=== PATIENT | female | born 2000 | race Caucasian/White ===

== ENCOUNTER 2022-02-25 16:37 | Emergency (ER) | payer SELFPAY ==
[2022-02-25 17:00] VITALS: BP 119/73; PULSE 113; RESP 20; TEMP 36.1; O2SAT 100
--- NOTE | 2022-02-25 19:40 | ED.FEMALEGU ---
HPI - Female Genitourinary General Chief complaint: Urogenital-Female Stated complaint: Urinary Problem Time Seen by Provider: 02/25/22 19:40 Source: patient, family, RN notes reviewed and old records reviewed Mode of arrival: ambulatory Limitations: no limitations History of Present Illness HPI Narrative: 21-year-old female accompanied by significant other presents to [facility] with 1 week duration of bilateral flank pain greatest on left with some burning with urination. Patient denies any fevers any suprapubic discomfort denies any visible blood in her urine. Patient verbalizes no vaginal discharge or any concern for STD exposure. Patient reports that she has not had any known fevers. Urine noted to be cloudy in appearance. Patient has been taking Tylenol for her discomfort. MD elicited complaint: UTI Onset (ago): week(s) (1) Location of symptoms: flank (bilateral with urinary burning) Severity scale (1-10): 7 Urinary symptoms: Dysuria and Flank Pain Related Data Allergies Allergy/AdvReac Type Severity Reaction Status Date / Time No Known Allergies Allergy Verified 02/25/22 18:19 Review of Systems Review of Systems: CONSTITUTIONAL: Denies fever, chills, or sweats. CARDIOVASCULAR: Denies chest pain, palpitations, or edema. RESPIRATORY: Denies cough or dyspnea. GASTROINTESTINAL: Denies abdominal pain, nausea, vomiting, or diarrhea. GENITOURINARY: Reports dysuria, frequency, urgency. Reports flank pain no visible hematuria. SKIN: Denies rash or itching. MUSCULOSKELETAL: Denies back pain or myalgia. Positive CVA tenderness NEUROLOGIC: Denies headache All systems reviewed & are unremarkable except as noted in HPI and below PMFSH Social History Social History (Updated 03/03/22 @ 09:07 by Kathi Gallegos NP) Smoking status: Current every day smoker Tobacco type: e-cigarettes/vaping Alcohol intake: unknown Substance use type: does not use Living arrangements: with family Gender identity (if verbalized by the patient): Female Comments At time of signature, agree with nursing past medical, surgical, social and family history. There is no relevant family history pertinent to the presenting complaint Exam Narrative: GENERAL: Well-appearing, well-nourished, and in no acute distress. HEAD: Normocephalic, atraumatic. NECK: Supple. CHEST: Clear to auscultation. No respiratory distress.SAO2 100% on room air HEART: Regular rate and rhythm. No murmur heard. Normal peripheral pulses. ABDOMEN: Soft, nontender, nondistended, normal active bowel sounds. Positive for CVA tenderness greater on left. EXTREMITIES: Normal range of motion. No edema. SKIN: Warm, dry, no rash. NEURO: No focal deficits. Alert and oriented x3. Course Course Emergency Course: Patient is aware of diagnosis, understands and agrees to treatment plan.? Anticipatory guidance given.? Patient agrees to follow-up as directed and is aware of reasons to seek care at the emergency department. Portions of this record may have been created with voice recognition software Level of Care: Express Care Visit Vital Signs Vital signs: Vital Signs Temperature 36.1 C L 02/25/22 17:00 Pulse Rate 113 H 02/25/22 17:00 Respiratory Rate 20 02/25/22 17:00 Blood Pressure 119/73 02/25/22 17:00 Pulse Oximetry 100 02/25/22 17:00 Oxygen Delivery Room Air 02/25/22 17:00 Temperature 36.1 C L 02/25/22 17:00 Pulse Rate 113 H 02/25/22 17:00 Respiratory Rate 20 02/25/22 17:00 Blood Pressure 119/73 02/25/22 17:00 Pulse Oximetry 100 02/25/22 17:00 Oxygen Delivery Room Air 02/25/22 17:00 MDM - Female Genitourinary MDM Narrative Medical decision making narrative: Exam findings and UA show no acute concerns or changes; patient is non-toxic appearing and is in no distress.? Patient is appropriate for outpatient treatment and follow-up. Differential Diagnosis Differential diagnosis: Likely urinary tract infection, cervicitis, vaginit
== END 2022-02-25 19:57 | disposition home or self-care (01) ==
PROVIDERS: Emergency Provider Registered Nurse
DX: N39.0 Urinary tract infection, site not specified (principal)
CPT/HCPCS: 81003; 87077; 87086; 87186; 99213; G0463

== ENCOUNTER 2023-05-02 15:18 | Emergency (ER) | payer SELFPAY ==
[2023-05-02 15:28] VITALS: BP 122/78; PULSE 100; RESP 18; TEMP 36.9; O2SAT 100
[2023-05-02 15:43] VITALS: BP 122/78; PULSE 100; RESP 18; TEMP 36.9; O2SAT 100
--- NOTE | 2023-05-02 16:18 | ED.GENADULT ---
HPI - General Adult General Chief complaint: Urogenital-Female Stated complaint: Poss UTI Source: patient Mode of arrival: ambulatory Limitations: no limitations History of Present Illness HPI narrative: Patient presents for evaluation of urinary symptoms. She has experienced dysuria for the past week. She has associated urinary frequency and urgency. She denies any fever, chills, abdominal pain, low back pain, vaginal bleeding or discharge. She is sexually active with 1 female partner. That partner is here being evaluated for similar symptoms. Related Data Allergies Allergy/AdvReac Type Severity Reaction Status Date / Time No Known Allergies Allergy Verified 05/02/23 15:25 Review of Systems Review of Systems: CONSTITUTIONAL: Denies fever, chills, or sweats. EYES: Denies visual changes, redness, or discharge. ENT: Denies rhinorrhea, congestion, sore throat, or otalgia. CARDIOVASCULAR: Denies chest pain, palpitations, or edema. RESPIRATORY: Denies cough or dyspnea. GASTROINTESTINAL: Denies abdominal pain, nausea, vomiting, or diarrhea. GENITOURINARY: Reports urinary frequency, urgency and dysuria. Denies vaginal bleeding or discharge. SKIN: Denies rash or itching. MUSCULOSKELETAL: Denies back pain, joint pain, or myalgia. NEUROLOGIC: Denies headache, numbness, dizziness, or weakness. PSYCHIATRIC: Denies anxiety or depression. [facility] Past Medical History Medical History No pertinent past medical history Surgical History Surgical History No pertinent past surgical history Family History Family History (Updated 05/02/23 @ 16:21 by Don Lyman, [facility], ) Mother Family history non-contributory Social History Social History Smoking status: Current every day smoker Tobacco type: e-cigarettes/vaping Alcohol intake: unknown Substance use type: does not use Additional living arrangements comments: Lives with girlfriend Gender identity (if verbalized by the patient): Female Exam Narrative: GENERAL: Well-appearing, well-nourished, and in no acute distress. HEAD: Normocephalic, atraumatic. EYES: PERRLA and EOMI. ENT: Nares clear, no rhinorrhea or epistaxis. Mucous membranes moist. Oropharynx without tonsillar hypertrophy exudate or other lesions. Bilateral TMs pearly penny nonbulging NECK: Supple. No adenopathy or masses. No carotid bruits or JVD CHEST: Clear to auscultation. No respiratory distress. No wheezes rales or rhonchi HEART: Regular rate and rhythm. No murmur heard. Normal peripheral pulses. ABDOMEN: Soft, nontender, nondistended, normal active bowel sounds. GENITAL: No external genital lesions. No adnexal tenderness. No cervical motion tenderness. There is a moderate amount of thick yellow/green drainage in vaginal vault EXTREMITIES: Normal range of motion. No edema. SKIN: Warm, dry, no rash. NEURO: No focal deficits. Alert and oriented x3. PSYCH: Normal mood and affect. Course Course Emergency Course: This is a 22-year-old female who presented for evaluation of urinary symptoms. Pelvic exam was performed and revealed moderate amount of thick yellow/green drainage in vaginal vault. We agreed to move forward with treatment for STIs hand BV. She was given Rocephin while here and will be discharged with doxycycline and Flagyl. Diflucan to be taken at the end of the course of antibiotics in the event that she develops vaginal candidiasis. advised to remain sexually abstinent until both she and her partner have fully completed course of antibiotics. Sterilize sex toys. Follow up with primary care provider and go to the ER for worsening symptoms. Pt in agreement with plan o f care. Level of Care: Express Care Visit Vital Signs Vital signs: Vital Signs Temperature 36.9 C 05/02/23 15
[2023-05-02] MEDS: cefTRIAXone 500 MG, LIDOCAINE HCL 1% LOCAL INJ 1 ML IM (17:00)
[2023-05-02 18:53] LABS: Trichomonas Vag PCR NOT DETECTED (NOT DETECTE)
[2023-05-02 19:19] LABS: Chlamydia trachomatis NOT DETECTED (NOT DETECTE); Neisseria gonorrhoeae PCR NOT DETECTED (NOT DETECTE)
== END 2023-05-02 17:20 | disposition home or self-care (01) ==
PROVIDERS: Emergency Provider Nurse Practitioner
DX: N76.0 Acute vaginitis (principal); F17.290 Nicotine dependence, other tobacco product, uncomplicated
CPT/HCPCS: 81003; 87070; 87077; 87086; 87186; 87491; 87591; 87661; 96372; 99214; G0463; J0696